=== PATIENT | female | born 1990 | race Two or more races ===

== ENCOUNTER 2019-07-24 11:31 | Emergency (ER) | payer BC ==
[~2019-07-24] VITALS: Ht 152.4 cm; Wt 61.0 kg
[2019-07-24 13:23] VITALS: BP 164/98
== END 2019-07-24 13:28 | disposition home or self-care (01) ==
LOC: ER 11:31
DX: B34.9 Viral infection, unspecified (principal)
CPT/HCPCS: 71045; 93005; 99283